=== PATIENT | female | born 1985 | race Caucasian/White ===

== ENCOUNTER 2018-10-09 08:53 | Emergency (ER) | END 2018-10-09 12:17 | disposition home or self-care (01) ==

== ENCOUNTER 2018-10-13 23:14 | Emergency (ER) | END 2018-10-14 04:48 | disposition home or self-care (01) ==

== ENCOUNTER 2018-10-16 06:16 | Emergency (ER) | END 2018-10-16 09:30 | disposition home or self-care (01) ==